=== PATIENT | female | born 1960 | race Caucasian/White ===

== ENCOUNTER → 2016-12-08 | Outpatient (CLI) | payer OTHER ==
--- NOTE | 2016-12-08 16:02 | US ---
EXAMINATION TYPE: US carotid duplex BILAT DATE OF EXAM: 12/08/2016 3:25 PM COMPARISON: None. CLINICAL HISTORY: 56-year-old female loss of vision both eyes. TECHNIQUE: Carotid duplex Doppler ultrasound examination. Indirect Doppler criteria was utilized. FINDINGS: Smith scale images show slight intimal thickening at each bifurcation. RIGHT: Peak Systolic Velocity (PSV) cm/sec ----- Right CCA: 73.2 ----- Right ICA: 82.0 ----- Right ECA: 62.5 ICA/CCA ratio: 1.1 RIGHT: End Diastole cm/sec ----- Right CCA: 30.3 ----- Right ICA: 38.0 ----- Right ECA: 18.8 LEFT: Peak Systolic Velocity (PSV) cm/sec ----- Left CCA: 61.6 ----- Left ICA: 72.1 ----- Left ECA: 47.4 ICA/CCA ratio: 1.2 LEFT: End Diastole cm/sec ----- Left CCA: 25.0 ----- Left ICA: 27.0 ----- Left ECA: 11.8 VERTEBRALS (direction of flow): Right Vertebral: Antegrade Left Vertebral: Antegrade IMPRESSION: No hemodynamically significant stenosis appreciated within either internal carotid artery. Criteria for Assigning % of Stenosis / Diameter reduction (Estimation based on the indirect measurements of the internal carotid artery velocities (ICA PSV). 1. Normal (no stenosis)=ICA PSV < 125 cm/s: ratio < 2.0: ICA EDV<40 cm/s. 2. Less than 50% stenosis=ICA PSV < 125 cm/s: ratio < 2.0: ICA EDV<40 cm/s. 3. 50 to 69% stenosis=ICA PSV of 125 to 230 cm/s: ration 2.0 ? 4.0: ICA EDV 40-100 cm/s. 4. Greater than 70% stenosis to near occlusion= ICA PSV > 230 cm/s: ratio > 4.0: ICA EDV > 100 cm/s. 5. Near occlusion= ICA PSV velocities may be low or undetectable: variable ratio and ICA EDV. 6. Total occlusion=unable to detect flow.
== END | disposition home or self-care (01) ==
LOC: RADUSWWP 14:54
PROVIDERS: ATTEND Family Medicine
DX: G45.3 Amaurosis fugax (principal)
CPT/HCPCS: 93880

== ENCOUNTER → 2016-12-12 | Outpatient (CLI) | payer OTHER ==
--- NOTE | 2016-12-12 14:04 | MR ---
EXAMINATION TYPE: MR brain wo con DATE OF EXAM: 12/12/2016 1:17 PM COMPARISON: NONE HISTORY: amaurosis fugax CONTRAST: None TECHNIQUE: Multiplanar, multiecho imaging on a 3.0 Tiarra magnet is performed through the brain. Stud y is performed within 24 hours of arrival to the hospital. The craniovertebral junction is normal. The pituitary is normal. Diffusion-weighted imaging is performed. No abnormal hyperintensity is present to suggest an acute i ntracranial infarct or acute ischemic change. There are scattered punctate areas of hyperintensity on T2 and Inversion Recovery weighted sequences which are non-specific but can be related to microvascular ischemic changes. These appear to number a pproximately 13 on each side within centrum semiovale and subcortical white matter. Differential diag nosis could include multiple sclerosis in the proper clinical setting. The graft largest on the left measures 0.4 x 0.7 cm in the subcortical white matter of the watershed region. Series 501 image 19. L argest on the right is in the subcortical white matter of the posterior parietal lobe 0.5 x 0.5 cm. S eries 501 image 20 Ventricles and sulci are slightly prominent for the patient age. IMPRESSIONS: 1. Multiple bilateral subcortical and deep white matter changes which are nonspecific. Microvascular ischemic change and multiple sclerosis could be considered among other etiologies.
== END | disposition home or self-care (01) ==
LOC: RADMRIMAIN 12:18
PROVIDERS: ATTEND Family Medicine
DX: R90.82 White matter disease, unspecified (principal); G45.3 Amaurosis fugax
CPT/HCPCS: 70551

== ENCOUNTER → 2017-01-03 | Day surgery (SDC) | payer OTHER ==
[~2017-01-03] MED LIST: LACTATED RINGERS 1,000 ML IV SCH; LACTATED RINGERS 500 ML IV ONE; LACTATED RINGERS 500 ML IV SCH; MIDAZOLAM 2 MG/2 ML VIAL IV ONE; SODIUM CHLORIDE 0.9% 250 ML in EMPTY BAG 1 BAG IV PRN; SODIUM CHLORIDE 0.9% 500 ML in EMPTY BAG 1 BAG IV PRN; fentaNYL (PF) 50 MCG/ML 2 ML AMP IV ONE
[2017-01-03] MEDS: LACTATED RINGERS 1,000 ML IV SCH ×2 (12:01→12:33)
--- NOTE | 2017-01-03 12:12 | P.PCN ---
Date of Procedure: 01/03/17 Procedure(s) Performed: Preoperative diagnosis: Multiple sclerosis Post operative diagnoses: Multiple sclerosis Anesthesia local infiltration with lidocaine 1% 2 mL. and Versed 2 mg and fentanyl 50 g Condition: stable Complication: none. Description of the procedure procedure risk and benefits discussed with the patient and family, consent signed. Patient and the procedure area placed in lateral position back prepped with chlorhexidine 3 times been local infiltration of the skin and subcutaneous tissue with lidocaine 1% 2 mL for skin and subcu interstitial frustrations at L4 5 levels then 22-gauge Quincke- type needle advanced slowly at L4- 5 interlaminar space there was positive cerebrospinal fluid which was clear, no heme, no paresthesia ,total of 8 ML of clear cerebrospinal fluid collected in 4 different tubes 1-5 -2 mL in each, then the needle removed and a Band-Aid applied and patient tolerated the procedure well without any complications.
[2017-01-03 12:15] VITALS: RESP 18
[2017-01-03 13:19] VITALS: BP 116/68; PULSE 58
[2017-01-03 13:20] LABS: Appearance,CSF Clear
[2017-01-03 13:28] LABS: Glucose,CSF 59 mg/dL (40-70)
[2017-01-03 21:20] LABS: ANA w/Reflex to Titer NEGATIVE (NEGATIVE)
[2017-01-04 02:54] LABS: Lyme Antibodies Total(IgG/IgM) 0.07 (<0.90)
[2017-01-04 13:57] LABS: Immunoglobulin G 968 mg/dL (700 - 1600)
[2017-01-06 10:05] LABS: Lyme Specimen Source Not Provided
== END ==
LOC: PROCWHC3 11:12
PROVIDERS: ATTEND Specialist
DX: G35 Multiple sclerosis (principal)
CPT/HCPCS: 86235 ×3; 87476; 86592; 86618; 84439; 88108; 84157; 82945; 82040; 82042; 82784; 83916; 82164 ×2; 83873; 84443; 84450; 85730; 86431; 85613; 89050; 86780; 86038; 86225; 96360; 84460; 36415; 62270; J2250; J3010; 96361

== ENCOUNTER 2017-01-06 11:41 | Day surgery (SDC) | payer OTHER ==
--- NOTE | 2017-01-06 13:47 | P.PCN ---
Date of Procedure: 01/06/17 Procedure(s) Performed: Procedure= lumbar epidural blood patch. Preoperative diagnosis= postdural puncture headache. Postoperative diagnoses= post dural puncture headache. Indication for the procedure= patient developed sever headache after the diagnostic lumbar puncture /spinal headache persists in spite of conservative treatment, there is no focal neurological deficit, no fever, no neck stiffness, headache worse with sitting and standing position, and improved with lying supine, for this reason patient is a good candidate for epidural blood patch. anesthesia= IV sedation with Versed 2 mg and fentanyl 50 g ,and local infiltration with lidocaine 1% 3 mL. Complications= none. Description of the procedure= patient identified risks and benefits of the procedure explained to the patient and patient agreed with proceeding, vital signs monitored during the procedure and IV sedation given to decrease anxiety, Back lumbar area prepped with chlorhexidine 3 times, then drape applied the local infiltration of the skin and subcutaneous tissue with lidocaine 1% 3 mL at L5-S1 interlaminar space then 20-gauge Tuohy needle advanced slowly at L5-S1 interlaminar space, There was positive loss of resistance to normal saline, no heme no paresthesia no cerebrospinal fluid, then after that he ML of the blood taken from the patient under strict sterile technique, and after the left antecubital area prepped with a chlorhexidine 3 times using 20-gauge Angiocath, and under sterile technique the 20 ML of the block taken from the patient injected in the epidural space after negative aspiration for heme or CSF and there was no paresthesia then the needle removed intact the skin cleaned and the , bandage applied and patient discharged home in stable condition after discharge criteria met, and patient will follow up with (neurology services )
[2017-01-06] MEDS ORDERED: fentaNYL (PF) 50 MCG/ML 2 ML AMP IV NR (15:00)
[2017-01-06] MEDS ORDERED: MIDAZOLAM 2 MG/2 ML VIAL IVP NR (15:00)
[2017-01-06] MEDS ORDERED: LACTATED RINGERS 1,000 ML IV ONE (15:00)
[2017-01-06 15:25] VITALS: RESP 16; TEMP 97.6
[2017-01-06 15:37] VITALS: BP 107/73; PULSE 81
== END 2017-01-06 12:40 | disposition home or self-care (01) ==
LOC: PROCWHC3 11:41 → EDSTATUS 11:45 → PROCWHC3 12:40
PROVIDERS: ATTEND Specialist
DX: G97.1 Other reaction to spinal and lumbar puncture (principal); Y84.4 Aspiration of fluid as the cause of abnormal reaction of the patient, or of later complication, without mention of misadventure at the time of the procedure; Y92.239 Unspecified place in hospital as the place of occurrence of the external cause
CPT/HCPCS: 96361; 96374; 62273; J2250; J3010

== ENCOUNTER → 2017-02-22 | Outpatient (CLI) | payer OTHER ==
[2017-02-16 13:21] VITALS: BMI 29.1
[2017-02-22 13:20] VITALS: BP 132/95; PULSE 63; RESP 16; TEMP 98.1
--- NOTE | 2017-02-22 13:42 | P.CON ---
Consult Note - . Consult date: 02/22/17 Assessment/Plan:: Dr. Ceasar Gold dictating outpatient consultation note on Patricia Carranza. She is interviewed, examined, and the chart is reviewed in full with her consent. 56-year-old female presents today for evaluation possible therapeutic intervention with regards to her chronic pain related complaints. She states she long-standing history of low back and lower extremity related discomfort dating back many many years. Does not remember any specific accident , injury, inciting event precipitated the onset of her complaints but she has noticed an acute rise in both the severity and frequency C of her symptoms over the past 4-6 months. She describes pain in her low back more severely predominantly on the left side with direct radiation into her left buttock and hip. Both the neuraxial component and the radicular component of her pain is worsened with increased amounts of activity or sudden rapid position changes. At many times during the day she can find no position of comfort in her ability to tolerate tolerate some of her daily activities has become markedly curtailed. Because of this increasing functional limitations what eventually prompted her to seek more aggressive therapeutic intervention. Diagnostic evaluation up to this point consisted both the plain film radiographs and advance x-ray imaging techniques such as MRI. The results of these radiographic studies including the results of the MRI are available on the [place] [facility] chart. Therapeutic intervention up to this point has been conservative in nature consisting of some oral analgesic preparations and some low-level physical therapy/exercises. Neither of these remedies have provided her with a significant reduction in her level of symptomatology, or a better ability to resume most of the activity she wishes to pursue. Not undergone any previous interventional pain injections, nor has she had any previous spine surgery it was at this point time and along a detailed discussion with regarding a variety of therapeutic options available to her. We agreed that a transforaminal epidural injection on the left side at the level NAVEEN 5 would be an appropriate and prudent first step in her treatment algorithm. This procedure was explained to her great toe, including a thorough expiration of all postures Occasions as well as potential for significant therapeutic benefit. She was given ample opportunity ask any questions with any concerns regarding this treatment plan and we scheduled her injection within the next couple weeks. He has she is quite desirous of not having any medical management performed on her in avoiding opiates at all cost I told her that I very much respect this opinion and we will try to get her into the procedure schedule she was possible thank you so much for this most interesting consultation
== END | disposition home or self-care (01) ==
LOC: PNWHC3 11:49
PROVIDERS: ATTEND Anesthesiology
DX: G89.29 Other chronic pain (principal); M54.5 Low back pain; M25.552 Pain in left hip; M53.3 Sacrococcygeal disorders, not elsewhere classified
CPT/HCPCS: 99211

== ENCOUNTER 2017-03-27 08:34 | Day surgery (SDC) | payer OTHER ==
[2017-03-24 08:24] VITALS: BMI 29.1
[~2017-03-27 08:34] MED LIST changes: -LACTATED RINGERS 500 ML IV ONE; -LACTATED RINGERS 500 ML IV SCH; -MIDAZOLAM 2 MG/2 ML VIAL IV ONE; -SODIUM CHLORIDE 0.9% 250 ML in EMPTY BAG 1 BAG IV PRN; -SODIUM CHLORIDE 0.9% 500 ML in EMPTY BAG 1 BAG IV PRN; -fentaNYL (PF) 50 MCG/ML 2 ML AMP IV ONE
[2017-03-27 09:18] VITALS: RESP 16; TEMP 98.7
[2017-03-27] MEDS ORDERED: LIDOCAINE 1% 20 ML VIAL (10MG/ML) FOR IV START INTRADERMA ONE (09:18)
[2017-03-27] MEDS ORDERED: MIDAZOLAM 2 MG/2 ML VIAL ONE (09:42)
[2017-03-27] MEDS ORDERED: fentaNYL (PF) 50 MCG/ML 2 ML AMP ONE (09:42)
[2017-03-27] MEDS ORDERED: IOHEXOL 180 MG/ML 1 ML ML ONE (09:42)
[2017-03-27] MEDS ORDERED: TRIAMCINOLONE ACETONIDE 40 MG/ML 1 ML VIAL ONE (09:42)
[2017-03-27] MEDS ORDERED: IV FLUID CONTINUATION 1,000 ML IV ONE (10:15)
[2017-03-27] MEDS ORDERED: ONDANSETRON 4 MG/2 ML VIAL IVP ONE ×2 (10:20→11:14)
--- NOTE | 2017-03-27 10:41 | FL ---
EXAMINATION TYPE: FL guided pain mgmt statistic DATE OF EXAM: 03/27/2017 10:25 AM CLINICAL HISTORY: Low back pain. TECHNIQUE: Fluoroscopy. COMPARISON: None. FINDINGS: Fluoroscopic guidance was provided during pain relief procedure performed by Dr. Rojo . A total of 22 seconds of fluoroscopic time was utilized during the procedure and 1 spot images are acquired. Single image acquired shows needle localization off midline at inferior L4 vertebral body level. IMPRESSION: As Above.
--- NOTE | 2017-03-27 11:12 | P.PCN ---
Date of Procedure: 03/27/17 Procedure(s) Performed: PREOPERATIVE DIAGNOSIS: Lumbar radiculopathy in left L4-5 distribution POSTOPERATIVE DIAGNOSIS: Same as preoperative diagnosis PROCEDURE 1. Transforaminal epidural steroid injection under fluoroscopic guidance at left L4-5 level. 2. Lumbar epidurogram : ANESTHESIA: Local with 1% lidocaine 3 ml ,; IV sedation with Versed 2 and fentanyle 100 mcg EBL: Minimal PROCEDURE INDICATION: The patient with low back pain and radiculopathy symptoms unresponsive to conservative treatment. PROCEDURE DESCRIPTION / TECHNIQUE: The patient was seen and identified in the preoperative area. Risks, benefits , complications, and alternatives were discussed with the patient. The patient agreed to proceed with the procedure and signed the consent. IV was started, and vital signs were stable. Patient was taken to the OR and time out was completed. The patient was placed in the prone position on procedure table and a pillow was placed under the abdomen to reduce lumbar lordosis. The lumbosacral area was prepped and draped in the usual sterile fashion. Critical pause was taken. Vital signs were closely monitored during the procedure. Conscious sedation was used during the procedure to decrease patients anxiety. Using oblique fluoroscopy, the chin of the ``Darwin dog at Left L4-5 level was identified, and the skin and deeper tissues just below was localized with 1 % lidocaine. Subsequently, a 22-gauge 5-inch spinal needle was advanced under a tunneled view fluoroscopic guidance just underneath the chin of the ``Darwin dog at the Left L4-5 Under lateral fluoroscopy, the needle was then advanced to the posterior border of the Left L4-5 interforaminal space. After negative aspiration of CSF and blood and with no paresthesias, 2 mL ofomnipaque-240 contrast dye was injected excellent epidurogram and outlining of the left L4-5 foramina, Subsequently, 3 mL of block solution containing 40 mg of Kenalog and 2 mL of Lidocaine 1% was injected. Needle was removed , At the end of the procedure, skin was cleansed, and bandages were applied. COMPLICATIONS: None COMMENTS: DISPOSITION / PLANS: The patient was placed in a supine position and transferred to the recovery area in a stable condition for observation. There was no evidence of lower extremity motor or sensory deficit after the procedure. Patient was discharged from the recovery room after meeting discharge criteria. Home discharge instructions were given to the patient by the staff. The patient was reexamined prior to discharge.
[2017-03-27 11:55] VITALS: BP 127/87; PULSE 66
== END 2017-03-27 11:58 | disposition home or self-care (01) ==
LOC: ORPAIN 08:34
PROVIDERS: ATTEND Specialist
DX: M54.16 Radiculopathy, lumbar region (principal); Z88.0 Allergy status to penicillin
CPT/HCPCS: 64483; 99152; J2250; J3301; Q9965; J2405; J3010

== ENCOUNTER → 2017-08-21 | Outpatient (CLI) | payer OTHER | END | disposition home or self-care (01) | LOC: LABWHC1 10:26 | PROVIDERS: ATTEND Psychiatry & Neurology Neurology | DX: M54.16 Radiculopathy, lumbar region (principal) | CPT/HCPCS: 36415; 82306 ==

== ENCOUNTER → 2017-10-25 | Outpatient (CLI) | payer OTHER ==
[2017-10-25 10:06] LABS: INR 0.9 (<1.2); Partial Thromboplastin Time 24.1 sec (22.0-30.0); Prothrombin Time 9.4 sec (9.0-12.0)
[2017-10-25 10:20] LABS: Basophils # (A) 0.1 k/uL (0-0.2); Basophils % (A) 1 %; CH 28.3; CHCM 31.9; Eosinophils # (A) 0.3 k/uL (0-0.7); Eosinophils % (A) 4 %; HCT 40.1 % (34.0-46.0); HDW 2.26; HGB 13.3 gm/dL (11.4-16.0); Luc # (Auto) 0.12; Luc % (Auto) 2; Lymphocytes # (A) 2.2 k/uL (1.0-4.8); Lymphocytes % (A) 30 %; MCH 29.6 pg (25.0-35.0); MCHC 33.2 g/dL (31.0-37.0); MCV 89.1 fL (80.0-100.0); Mean Platelet Volume 7.7; Monocytes # (A) 0.5 k/uL (0-1.0); Monocytes % (A) 7 %; Neutrophils # (A) 4.2 k/uL (1.3-7.7); Neutrophils % (A) 57 %; RDW 14.2 % (11.5-15.5); WBC 7.5 k/uL (3.8-10.6); WBC (Perox) 7.41
[2017-10-25 10:21] LABS: Anion Gap 8 mmol/L; Blood Urea Nitrogen 20 mg/dL (7-17); Carbon Dioxide 27 mmol/L (22-30); Chloride 106 mmol/L (98-107); Glucose 91 mg/dL (74-99); Non-African American GFR(MDRD) >60 (>60 ml/min/1.73 sqM); Potassium 4.3 mmol/L (3.5-5.1); Sodium 141 mmol/L (137-145)
[2017-10-25 11:02] LABS: Appearance,Urine Clear (Clear); Bacteria,Urine Rare /hpf; Bilirubin,Urine Negative (Negative); Glucose,Urine (UA) Negative (Negative); Ketones,Urine Negative (Negative); Leukocyte Esterase,Urine Trace (Negative); Nitrite,Urine Negative (Negative); Particle Count 957; Protein,Urine Negative (Negative); RBC,Urine <1 /hpf (0-5); Specific Gravity,Urine 1.013 (1.001-1.035); Squamous Epithelial Cell,Urine 5 /hpf (0-4); UA Billing (MACRO vs. MICRO) MICRO; Urobilinogen,Urine <2.0 mg/dL (<2.0); WBC,Urine 1 /hpf (0-5)
== END | disposition home or self-care (01) ==
LOC: LABWHC1 09:17
PROVIDERS: ATTEND Family Medicine
DX: Z01.810 Encounter for preprocedural cardiovascular examination (principal); Z01.812 Encounter for preprocedural laboratory examination; M25.561 Pain in right knee
CPT/HCPCS: 36415; 80048; 81001; 85025; 85610; 85730; 93005

== ENCOUNTER → 2018-01-15 | Outpatient (CLI) | payer BC ==
--- NOTE | 2018-01-15 11:33 | XR ---
EXAMINATION TYPE: XR lumbosacral spine min 4V DATE OF EXAM: 01/15/2018 CLINICAL HISTORY: Lumbar region spondylolisthesis per order. Low back pain going down left leg since knee replacement surgery November 06 per patient. TECHNIQUE: Frontal, lateral, and oblique images of the lumbar spine are obtained. COMPARISON: Lumbar spine x-ray October 24, 2016 FINDINGS: There are 5 lumbar type vertebral bodies redemonstrated. The lumbar spine redemonstrates stable slight levoconvex scoliotic curvature centered L3 level without evidence of acute fracture or dislocation. Vertebral body heights remain within normal limits. There is mild disc space narrowing with mild to moderate anterior spurring L2-L3 level. There is mild to moderate disc space narrowing L 4-L5 level. Facet arthropathy lower lumbar levels is again seen. There is additional mild multilevel anterior and lateral spurring. The oblique images appear within normal limits. Mild vascular consulta tion overlying soft tissue is redemonstrated. IMPRESSION: No acute fracture or dislocation is seen in the lumbar spine. Multilevel degenerative ch anges redemonstrated as detailed above, no significant change from prior study.
== END | disposition home or self-care (01) ==
LOC: RADXRMAIN 09:44
PROVIDERS: ATTEND Family Medicine
DX: M48.061 Spinal stenosis, lumbar region without neurogenic claudication (principal); M47.816 Spondylosis without myelopathy or radiculopathy, lumbar region; M46.86 Other specified inflammatory spondylopathies, lumbar region; M41.86 Other forms of scoliosis, lumbar region
CPT/HCPCS: 72110

== ENCOUNTER → 2018-01-16 | Outpatient (CLI) | payer BC ==
[2018-01-16 13:10] VITALS: BP 125/87; PULSE 99; RESP 18
--- NOTE | 2018-01-16 18:21 | P.PN ---
Subjective Progress Note Date: 01/16/18 This is 57 years old female with a chronic history of severe low back pain with radiation to the left lower extremity, she was diagnosed with lumbar radiculopathy, Last year I have done left side transforaminal epidural steroid injection at L4 5 level, she gets excellent pain relief, and recently she started having severe low back pain with radiation to left lower extremity associated with numbness and tingling sensation, she denies any fever or night sweats ,she denies any motor or sensory deficit ,she denies any change in the bowel movement or urination Objective - Vital Signs Vital signs: Vital Signs Temp Pulse 99 01/16/18 13:07 Resp 18 01/16/18 13:07 BP 125/87 01/16/18 13:07 Pulse Ox Intake & Output 01/15/18 01/16/18 01/16/18 18:59 06:59 18:59 Weight 79.379 kg - Exam Physical Examinations : 1-Constitutiona : Cooperative , not in acute distress . 2-HEENT : nech ; supple , no Lymphadenopathy , normal thyroid size . eyes : no ptosis , no icterus, no photophobia . ENT : normal of hearing , normal oropharynx , no Thrush . 3- Respiratory : Chest clear to auscultations Bilaterally , no wheezing , no Rhonchi . 4- Cardiovascular : regular rate and rhythem , S1 , S2 , no S3 , no S4. 5- Gastrointestinal : abdomen soft no tenderness , bowel sounds positive all four quadrents , no organomegally . 6- Genitourinary : Defferred . 7- neurologic : Cranial nerve II to XII intact , no focal neurological deffecit . 8-psychatric : alert , oriented X 3 , appropriate affect , intact judgment and insight . 9-Lymphatic : no Lymphadenopathy . 10- musculoskeltal : , Lumber spine = normal moter stegnth lower extremities ,thigh and legs .5/5 deep tendon reflexes : normal Knee Jerk , normal ankle Jerk . 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
== END | disposition home or self-care (01) ==
LOC: PNWHC3 12:38
PROVIDERS: ATTEND Specialist
DX: G89.29 Other chronic pain (principal); M54.16 Radiculopathy, lumbar region
CPT/HCPCS: 99211

== ENCOUNTER 2018-02-13 06:12 | Day surgery (SDC) | payer BC ==
[2018-02-08 16:18] VITALS: BMI 29.1
[2018-02-13 06:42] VITALS: TEMP 97.8
[2018-02-13] MEDS ORDERED: LIDOCAINE 1% 20 ML VIAL (10MG/ML) FOR IV START INTRADERMA ONE (06:51)
[2018-02-13] MEDS ORDERED: ONDANSETRON 4 MG/2 ML VIAL ONE (07:00)
[2018-02-13] MEDS ORDERED: ONDANSETRON 4 MG/2 ML VIAL IVP ONE (07:03)
--- NOTE | 2018-02-13 07:25 | P.PCN ---
Date of Procedure: 02/13/18 Surgeon: Cristin Gar Description of Procedure: PREOPERATIVE DIAGNOSIS: Lumbar radiculopathy in left L4-5 distribution POSTOPERATIVE DIAGNOSIS: Same as preoperative diagnosis PROCEDURE 1. Transforaminal epidural steroid injection under fluoroscopic guidance at left L4-5 level. 2. Lumbar epidurogram : ANESTHESIA: Local with 1% lidocaine 3 ml ,; IV sedation with Versed 2 and fentanyle 100 mcg EBL: Minimal PROCEDURE INDICATION: The patient with low back pain and radiculopathy symptoms unresponsive to conservative treatment. PROCEDURE DESCRIPTION / TECHNIQUE: The patient was seen and identified in the preoperative area. Risks, benefits , complications, and alternatives were discussed with the patient. The patient agreed to proceed with the procedure and signed the consent. IV was started, and vital signs were stable. Patient was taken to the OR and time out was completed. The patient was placed in the prone position on procedure table and a pillow was placed under the abdomen to reduce lumbar lordosis. The lumbosacral area was prepped and draped in the usual sterile fashion. Critical pause was taken. Vital signs were closely monitored during the procedure. Conscious sedation was used during the procedure to decrease patients anxiety. Using oblique fluoroscopy, the chin of the ``Darwin dog at Left L4-5 level was identified, and the skin and deeper tissues just below was localized with 1 % lidocaine. Subsequently, a 22-gauge 5-inch spinal needle was advanced under a tunneled view fluoroscopic guidance just under the pedicle of the L4 vertebra at the 6 o'clock position underneath the chin of the ``Darwin dog at the Left L4-5 Under lateral fluoroscopy, the needle was then advanced to one third of the Left L4-5 interforaminal space. After negative aspiration of CSF and blood and with no paresthesias, 1 mL contrast dye was injected excellent epidurogram and outlining of the left L4 nerve root, Subsequently, 2 mL of block solution containing 40 mg of Kenalog and 1 mL of Marcaine 0.25% was injected. Needle was removed , At the end of the procedure, skin was cleansed, and bandages were applied. COMPLICATIONS: None COMMENTS: DISPOSITION / PLANS: The patient was placed in a supine position and transferred to the recovery area in a stable condition for observation. There was no evidence of lower extremity motor or sensory deficit after the procedure. Patient was discharged from the recovery room after meeting discharge criteria. Home discharge instructions were given to the patient by the staff. The patient was reexamined prior to discharge.
[2018-02-13 07:33] VITALS: RESP 18
[2018-02-13] MEDS ORDERED: IV FLUID CONTINUATION 600 ML IV ONE (07:33)
[2018-02-13 07:50] VITALS: BP 115/78; PULSE 70
--- NOTE | 2018-02-13 08:14 | FL ---
EXAMINATION TYPE: FL guided pain mgmt statistic DATE OF EXAM: 02/13/2018 CLINICAL HISTORY: Low back pain. TECHNIQUE: Fluoroscopy. COMPARISON: None. FINDINGS: Fluoroscopic guidance was provided during pain relief procedure performed by Dr. Gar . A total of 23 seconds of fluoroscopic time was utilized during the procedure and 3 spot images are acquired. Images acquired shows needle localization at several levels in the lower lumbar spine. IMPRESSION: As Above.
== END 2018-02-13 08:00 | disposition home or self-care (01) ==
LOC: ORPAIN 06:12
PROVIDERS: ATTEND Anesthesiology
DX: M54.16 Radiculopathy, lumbar region (principal); I10 Essential (primary) hypertension; Z88.0 Allergy status to penicillin
CPT/HCPCS: 64483; J3301; Q9965; J2405; 99152

== ENCOUNTER 2018-02-27 07:25 | Day surgery (SDC) | payer BC ==
[2018-02-22 09:33] VITALS: BMI 29.1
[2018-02-27] MEDS ORDERED: LIDOCAINE 1% 20 ML VIAL (10MG/ML) FOR IV START INTRADERMA ONE (08:06)
[2018-02-27] MEDS ORDERED: LACTATED RINGERS 1,000 ML IV ONE (08:06)
[2018-02-27 08:13] VITALS: RESP 18; TEMP 98
[2018-02-27] MEDS ORDERED: ONDANSETRON 4 MG/2 ML VIAL IVP ONE (08:29)
[2018-02-27] MEDS ORDERED: IV FLUID CONTINUATION 1,000 ML IV ONE (09:39)
[2018-02-27 10:04] VITALS: BP 136/84; PULSE 64
--- NOTE | 2018-02-27 10:13 | FL ---
Fluoroscopy INDICATION: Pain FINDINGS: Fluoroscopy time: 26 seconds. Images obtained: 1. IMPRESSIONS: 1. Documentation of fluoroscopy.
--- NOTE | 2018-02-27 17:35 | P.PCN ---
Date of Procedure: 02/27/18 Procedure(s) Performed: PREOPERATIVE DIAGNOSIS: Lumbar radiculopathy in left L4-5 distribution POSTOPERATIVE DIAGNOSIS: Lumbar radiculopathy in left L4 5 distribution PROCEDURE 1. Transforaminal epidural steroid injection under fluoroscopic guidance at the left L4 5 level. 2. Lumbar epidurogram : ANESTHESIA: Local with 1% lidocaine 3 ml , moderate sedation with intravenous Versed 2 mg and fentanyle 100 micrograms. EBL: Minimal PROCEDURE INDICATION: The patient with low back pain and radiculopathy symptoms unresponsive to conservative treatment. PROCEDURE DESCRIPTION / TECHNIQUE: The patient was seen and identified in the preoperative area. Risks, benefits , complications, and alternatives were discussed with the patient. The patient agreed to proceed with the procedure and signed the consent. IV was started, and vital signs were stable. Patient was taken to the OR and time out was completed. The patient was placed in the prone position on procedure table and a pillow was placed under the abdomen to reduce lumbar lordosis. The lumbosacral area was prepped and draped in the usual sterile fashion. Critical pause was taken. Vital signs were closely monitored during the procedure. Conscious sedation was used during the procedure to decrease patients anxiety. Using oblique fluoroscopy, the chin of the ``Darwin dog at left L4 5 level was identified, and the skin and deeper tissues just below was localized with 1 % lidocaine. Subsequently, a 22-gauge 3.5-inch spinal needle was advanced under a tunneled view fluoroscopic guidance just underneath the chin of the ``Darwin dog at the left L4 5. Under lateral fluoroscopy, the needle was then advanced to the posterior border of the left L4 5 interforaminal space. After negative aspiration of CSF and blood and with no paresthesias, 1 mL Isovue 200 contrast dye was injected excellent epidurogram and outlining of the Left nerve root Subsequently, 3 mL of block solution containing 20 mg Dexamethason and 2 mL of Lidocaine 1% was injected. Needle was removed . COMPLICATIONS: None COMMENTS: DISPOSITION / PLANS: The patient was placed in a supine position and transferred to the recovery area in a stable condition for observation. There was no evidence of lower extremity motor or sensory deficit after the procedure. Patient was discharged from the recovery room after meeting discharge criteria. Home discharge instructions were given to the patient by the staff. The patient was reexamined prior to discharge.
== END 2018-02-27 10:23 | disposition home or self-care (01) ==
LOC: ORPAIN 07:25
PROVIDERS: ATTEND Specialist
DX: M54.16 Radiculopathy, lumbar region (principal); Z88.0 Allergy status to penicillin; Z86.73 Personal history of transient ischemic attack (TIA), and cerebral infarction without residual deficits
CPT/HCPCS: 64483; J2250; J1030; J3301; J2405; J3010; Q9966; 99152

== ENCOUNTER → 2018-03-12 | Outpatient (CLI) | payer BC ==
[2018-03-12 11:13] LABS: Appearance,Urine Clear (Clear); Bilirubin,Urine Negative (Negative); Blood,Urine Negative (Negative); Color,Urine Yellow; Glucose,Urine (UA) Negative (Negative); Ketones,Urine Negative (Negative); Leukocyte Esterase,Urine Trace (Negative); Mucus,Urine Rare /hpf; Nitrite,Urine Negative (Negative); Protein,Urine Trace (Negative); RBC,Urine 2 /hpf (0-5); Specific Gravity,Urine 1.022 (1.001-1.035); Squamous Epithelial Cell,Urine 2 /hpf (0-4); Urobilinogen,Urine <2.0 mg/dL (<2.0); WBC,Urine 1 /hpf (0-5)
[2018-03-12 11:16] LABS: INR 0.9 (<1.2); Partial Thromboplastin Time 22.7 sec (22.0-30.0); Prothrombin Time 9.3 sec (9.0-12.0)
[2018-03-12 11:18] LABS: Basophils # (A) 0.1 k/uL (0-0.2); Basophils % (A) 1 %; Eosinophils # (A) 0.2 k/uL (0-0.7); Eosinophils % (A) 2 %; HCT 44.6 % (34.0-46.0); HGB 14.3 gm/dL (11.4-16.0); Lymphocytes # (A) 2.7 k/uL (1.0-4.8); Lymphocytes % (A) 29 %; MCH 27.1 pg (25.0-35.0); MCHC 32.1 g/dL (31.0-37.0); MCV 84.6 fL (80.0-100.0); Mean Platelet Volume 7.1; Monocytes # (A) 0.4 k/uL (0-1.0); Monocytes % (A) 5 %; Neutrophils # (A) 5.7 k/uL (1.3-7.7); Neutrophils % (A) 62 %; Platelet Count 312 k/uL (150-450); RBC 5.28 m/uL (3.80-5.40); RDW 14.4 % (11.5-15.5); WBC 9.3 k/uL (3.8-10.6)
[2018-03-12 11:34] LABS: Anion Gap 11 mmol/L; Blood Urea Nitrogen 15 mg/dL (7-17); Calcium 10.4 mg/dL (8.4-10.2); Carbon Dioxide 30 mmol/L (22-30); Chloride 104 mmol/L (98-107); Glucose 91 mg/dL (74-99); Potassium 4.5 mmol/L (3.5-5.1); Sodium 145 mmol/L (137-145)
== END | disposition home or self-care (01) ==
LOC: LABWHC1 10:33
PROVIDERS: ATTEND Family Medicine
DX: Z01.812 Encounter for preprocedural laboratory examination (principal); M25.561 Pain in right knee
CPT/HCPCS: 36415; 80048; 81001; 85025; 85610; 85730

== ENCOUNTER → 2018-03-29 | Outpatient (CLI) | payer BC ==
[2018-03-29 17:02] LABS: Anion Gap 6 mmol/L; Blood Urea Nitrogen 17 mg/dL (7-17); Calcium 9.2 mg/dL (8.4-10.2); Carbon Dioxide 32 mmol/L (22-30); Chloride 103 mmol/L (98-107); Glucose 92 mg/dL (74-99); Potassium 4.7 mmol/L (3.5-5.1); Sodium 141 mmol/L (137-145)
== END ==
LOC: LABWHC1 16:35
PROVIDERS: ATTEND Family Medicine
DX: E87.6 Hypokalemia (principal)
CPT/HCPCS: 36415; 80048

== ENCOUNTER 2018-06-27 16:54 | Emergency (ER) | payer BC, OTHER ==
[2018-06-27] MEDS ORDERED: SODIUM CHLORIDE 0.9% 1,000 ML IV STA (17:24)
[2018-06-27 17:59] LABS: Basophils % (A) 1 %; Eosinophils # (A) 0.2 k/uL (0-0.7); Eosinophils % (A) 2 %; HCT 45.3 % (34.0-46.0); HGB 15.5 gm/dL (11.4-16.0); Lymphocytes # (A) 2.8 k/uL (1.0-4.8); Lymphocytes % (A) 32 %; MCH 28.1 pg (25.0-35.0); MCHC 34.2 g/dL (31.0-37.0); MCV 82.1 fL (80.0-100.0); Mean Platelet Volume 7.6; Monocytes # (A) 0.5 k/uL (0-1.0); Monocytes % (A) 6 %; Neutrophils # (A) 5.1 k/uL (1.3-7.7); Neutrophils % (A) 58 %; Platelet Count 335 k/uL (150-450); RBC 5.52 m/uL (3.80-5.40); RDW 13.9 % (11.5-15.5); WBC 8.8 k/uL (3.8-10.6)
[2018-06-27 18:08] LABS: Albumin 4.8 g/dL (3.5-5.0); Calcium 10.4 mg/dL (8.4-10.2); Phosphorus 3.2 mg/dL (2.5-4.5); Total Bilirubin 1.2 mg/dL (0.2-1.3); Total Protein 8.2 g/dL (6.3-8.2)
--- NOTE | 2018-06-27 18:14 | ED ---
General Adult HPI - General Chief complaint: Neuro Symptoms/Deficit Stated complaint: Numbness in face and hands Time Seen by Provider: 06/27/18 17:04 Source: patient, RN notes reviewed, old records reviewed Mode of arrival: wheelchair Limitations: no limitations - History of Present Illness Initial comments: This is a 57-year-old female the ER for evaluation. Patient does say for evaluation of multiple nonspecific complaints mainly arriving around numbness and tingling in fingers arms and legs. Patient has no specific neurological deficit no difficulties and speech or any other complaints. Patient has medical history of TIA. Patient states she has had similar symptoms before for years was unsure of cause multiple ER visits for same. Patient does admit to significant increase in stress was crying upon questioning regarding recent struggles of her family, . - Related Data Home Medications Medication Instructions Recorded Confirmed Hydrochlorothiazide 25 mg PO DAILY 11/14/16 06/27/18 Metoprolol Succinate (ER) [Toprol 100 mg PO DAILY 11/14/16 06/27/18 Xl] FLUoxetine HCL [PROzac] 20 mg PO DAILY 06/27/18 06/27/18 Topiramate [Topamax] 50 mg PO DAILY 06/27/18 06/27/18 Allergies Allergy/AdvReac Type Severity Reaction Status Date / Time amoxicillin Allergy Rash/Hives Verified 06/27/18 17:08 Review of Systems ROS Statement: Those systems with pertinent positive or pertinent negative responses have been documented in the HPI. ROS Other: All systems not noted in ROS Statement are negative. Past Medical History Past Medical History: CVA/TIA, Hyperlipidemia, Hypertension, Musculoskeletal Disorder Additional Past Medical History / Comment(s): BACK PAIN, MIGRAINES, HEAD INJURY History of Any Multi-Drug Resistant Organisms: None Reported Past Surgical History: Appendectomy, Section, Orthopedic Surgery Additional Past Surgical History / Comment(s): ACL replacement; R Knee arthroscopy, pain clinic procedure. total knee replacement left knee 11-06-17 Past Anesthesia/Blood Transfusion Reactions: Motion Sickness, Postoperative Nausea & Vomiting (PONV) Past Psychological History: Depression Smoking Status: Never smoker Past Alcohol Use History: None Reported Past Drug Use History: Marijuana - Past Family History Mother Family Medical History: No Reported History Father Family Medical History: Pulmonary Embolus General Exam - General Exam Comments Initial Comments: NIH of 0 Limitations: no limitations General appearance: alert, in no apparent distress Head exam: Present: atraumatic, normocephalic, normal inspection Eye exam: Present: normal appearance, PERRL, EOMI. Absent: scleral icterus, conjunctival injection, periorbital swelling ENT exam: Present: normal exam, mucous membranes moist Neck exam: Present: normal inspection. Absent: tenderness, meningismus, lymphadenopathy Respiratory exam: Present: normal lung sounds bilaterally. Absent: respiratory distress, wheezes, rales, rhonchi, stridor Cardiovascular Exam: Present: regular rate, normal rhythm, normal heart sounds. Absent: systolic murmur, diastolic murmur, rubs, gallop, clicks GI/Abdominal exam: Present: soft, normal bowel sounds. Absent: distended, tenderness, guarding, rebound, rigid Extremities exam: Present: normal inspection, full ROM, normal capillary refill. Absent: tenderness, pedal edema, joint swelling, calf tenderness Back exam: Present: normal inspection Neurological exam: Present: alert, oriented X3, CN II-XII intact Psychiatric exam: Present: normal affect, normal mood Skin exam: Present: warm, dry, intact, normal color. Absent: rash Course Vital Signs 06/27/18 16:56 Temperature 98.4 F Pulse Rate 68 Respiratory 20 Rate Blood Pressure 150/91 O2 Sat by Pulse 96 Oximetry - Reevaluation(s) Reevaluation #1: 06/27/18 18:43 Patient remains without focal neurological deficit Reevaluation #2: 06/27/18 18:43 Patient is not homicidal or suicidal EKG Findings - EKG Comments: EKG Findings:: EKG shows sinus bradycardia rate 51, IN 140, QRS 90, QTc 418 Medical Decision Making - Medical Decision Making 57 female the ER for evaluation. Severe anxiety and stress secondary to grief reaction of (job loss, CT negative labwork normal. Patient can be discharged home - Lab Data Result diagrams: 06/27/18 17:45 06/27/18 17:45 Lab Results 06/27/18 06/27/18 06/27/18 Range/Units 17:45 17:45 17:45 WBC 8.8 (3.8-10.6) k/uL RBC 5.52 H (3.80-5.40) m/uL Hgb 15.5 (11.4-16.0) gm/dL Hct 45.3 (34.0-46.0) % MCV 82.1 (80.0-100.0) fL MCH 28.1 (25.0-35.0) pg MCHC 34.2 (31.0-37.0) g/dL RDW 13.9 (11.5-15.5) % Plt Count 335 (150-450) k/uL Neutrophils % 58 % Lymphocytes % 32 % Monocytes % 6 % Eosinophils % 2 % Basophils % 1 % Neutrophils # 5.1 (1.3-7.7) k/uL Lymphocytes # 2.8 (1.0-4.8) k/uL Monocytes # 0.5 (0-1.0) k/uL Eosinophils # 0.2 (0-0.7) k/uL Basophils # 0.0 (0-0.2) k/uL PT (9.0-12.0) sec INR (<1.2) APTT (22.0-30.0) sec Sodium 136 L (137-145) mmol/L Potassium 4.4 (3.5-5.1) mmol/L Chloride 99 (98-107) mmol/L Carbon Dioxide 27 (22-30) mmol/L Anion Gap 10 mmol/L BUN 16 (7-17) mg/dL Creatinine 0.94 (0.52-1.04) mg/dL Est GFR (CKD-EPI)AfAm 79 (>60 ml/min/1.73 sqM) Est GFR (CKD-EPI)NonAf 69 (>60 ml/min/1.73 sqM) Glucose 104 H (74-99) mg/dL Calcium 10.4 H (8.4-10.2) mg/dL Phosphorus 3.2 (2.5-4.5) mg/dL Magnesium 2.0 (1.6-2.3) mg/dL Total Bilirubin 1.2 (0.2-1.3) mg/dL AST 41 H (14-36) U/L ALT 22 (9-52) U/L Alkaline Phosphatase 108 (38-126) U/L Total Creatine Kinase 80 (30-135) U/L Total Protein 8.2 (6.3-8.2) g/dL Albumin 4.8 (3.5-5.0) g/dL TSH 2.800 (0.465-4.680) mIU/L 06/27/18 Range/Units 17:45 WBC (3.8-10.6) k/uL RBC (3.80-5.40) m/uL Hgb (11.4-16.0) gm/dL Hct (34.0-46.0) % MCV (80.0-100.0) fL MCH (25.0-35.0) pg MCHC (31.0-37.0) g/dL RDW (11.5-15.5) % Plt Count (150-450) k/uL Neutrophils % % Lymphocytes % % Monocytes % % Eosinophils % % Basophils % % Neutrophils # (1.3-7.7) k/uL Lymphocytes # (1.0-4.8) k/uL Monocytes # (0-1.0) k/uL Eosinophils # (0-0.7) k/uL Basophils # (0-0.2) k/uL PT 10.3 (9.0-12.0) sec INR 1.0 (<1.2) APTT 23.9 (22.0-30.0) sec Sodium (137-145) mmol/L Potassium (3.5-5.1) mmol/L Chloride (98-107) mmol/L Carbon Dioxide (22-30) mmol/L Anion Gap mmol/L BUN (7-17) mg/dL Creatinine (0.52-1.04) mg/dL Est GFR (CKD-EPI)AfAm (>60 ml/min/1.73 sqM) Est GFR (CKD-EPI)NonAf (>60 ml/min/1.73 sqM) Glucose (74-99) mg/dL Calcium (8.4-10.2) mg/dL Phosphorus (2.5-4.5) mg/dL Magnesium (1.6-2.3) mg/dL Total Bilirubin (0.2-1.3) mg/dL AST (14-36) U/L ALT (9-52) U/L Alkaline Phosphatase (38-126) U/L Total Creatine Kinase (30-135) U/L Total Protein (6.3-8.2) g/dL Albumin (3.5-5.0) g/dL TSH (0.465-4.680) mIU/L - Radiology Data Radiology results: report reviewed (CT brain is negative for acute disease), image reviewed Disposition Clinical Impression: Transient cerebral ischemia, Paresthesia, Grief reaction Disposition: HOME SELF-CARE Condition: Good Instructions: Paresthesia (ED) Is patient prescribed a controlled substance at d/c from ED?: No Referrals: Daquan Mondragon MD [Primary Care Provider] - 1-2 days
[2018-06-27 18:18] LABS: Potassium 4.4 mmol/L (3.5-5.1)
[2018-06-27 18:27] LABS: Partial Thromboplastin Time 23.9 sec (22.0-30.0); Prothrombin Time 10.3 sec (9.0-12.0)
[2018-06-27 18:32] LABS: Creatine Kinase 80 U/L (30-135)
[2018-06-27 18:44] LABS: Creatine Kinase MB 1.2 ng/mL (0.0-2.4); Troponin I <0.012 ng/mL (0.000-0.034)
--- NOTE | 2018-06-27 18:50 | CT ---
EXAMINATION: CT brain wo con DATE AND TIME: 06/27/2018 6:06 PM ORDERING PROVIDER: Carlos Dong DO CLINICAL INDICATION: Weakness, dizziness, and headache TECHNIQUE: Standard departmental protocol. DLP 1103 mGy-cm. COMPARISON: None. DESCRIPTION: The calvarium is intact. There is no intracranial hemorrhage. There is no mass or mass e ffect. There is no definite new attenuation defect. Remainder of the intra-axial and extra-axial comp artment examination is unremarkable. The paranasal sinuses, middle ear cavities, and mastoid sinus ai r cells are clear. The orbits are intact. IMPRESSION: NO ACUTE PROCESS.
[2018-06-27 19:43] VITALS: BP 128/63; PULSE 55; RESP 17; TEMP 97.6
== END 2018-06-27 19:47 | disposition home or self-care (01) ==
LOC: EC 16:54
DX: G45.9 Transient cerebral ischemic attack, unspecified (principal); F43.22 Adjustment disorder with anxiety; F32.9 Major depressive disorder, single episode, unspecified; I10 Essential (primary) hypertension; Z86.73 Personal history of transient ischemic attack (TIA), and cerebral infarction without residual deficits; Z98.890 Other specified postprocedural states; Z79.899 Other long term (current) drug therapy; Z88.0 Allergy status to penicillin
CPT/HCPCS: 36415; 70450; 80053; 82550; 82553; 83735; 84100; 84443; 84484; 85025; 85610; 85730; 93005; 96360; 99285

== ENCOUNTER 2019-06-02 14:27 | Emergency (ER) | payer OTHER ==
[2019-06-02 14:41] VITALS: BP 146/93; PULSE 68; RESP 18; TEMP 98.4
--- NOTE | 2019-06-02 15:38 | XR ---
EXAMINATION TYPE: XR shoulder complete RT DATE OF EXAM: 06/02/2019 COMPARISON: NONE HISTORY: Shoulder pain TECHNIQUE: 3 views FINDINGS: There is no fracture nor dislocation. Joint spaces are fairly normal. There is extensive ca lcification in the soft tissues at the greater tuberosity of the humerus. IMPRESSION: Extensive calcific tendinitis. No fracture seen.
[2019-06-02] MEDS ORDERED: ACET/COD 300 MG/30 MG STARTER PACK 6 TAB BTL PO STA (15:43)
--- NOTE | 2019-06-02 15:47 | ED ---
Extremity Problem HPI - General Chief complaint: Extremity Problem,Nontraumatic Stated complaint: Shoulder pain Time Seen by Provider: 06/02/19 14:42 Source: patient Mode of arrival: ambulatory Limitations: no limitations - History of Present Illness Initial comments: 58 yo female presented right shoulder pain 3 days. Patient states she is unable to range at the right shoulder secondary pain for the past 2 days. She states she does sleep on that side. Patient states she is able to point localized area of tenderness over the anterolateral shoulder. Patient denies any falls injuries. Patient denies a previous surgeries. Patient denies a fever or chills night sweats or erythema of the shoulder. Patient denies any recent upper respiratory infections. Patient denies any chest pain shortness of breath scapular pain right upper quadrant abdominal pain. Remaining review of systems negative upon arrival patient appears well there is no signs of acute distress. Patient is afebrile heart rate within normal limits. Patient does appear uncomfortable holding right shoulder and a protective posture. - Related Data Home Medications Medication Instructions Recorded Confirmed Hydrochlorothiazide 25 mg PO DAILY 11/14/16 06/27/18 Metoprolol Succinate (ER) [Toprol 100 mg PO DAILY 11/14/16 06/27/18 Xl] FLUoxetine HCL [PROzac] 20 mg PO DAILY 06/27/18 06/27/18 Topiramate [Topamax] 50 mg PO DAILY 06/27/18 06/27/18 Allergies Allergy/AdvReac Type Severity Reaction Status Date / Time amoxicillin Allergy Rash/Hives Verified 06/02/19 14:41 Review of Systems ROS Statement: Those systems with pertinent positive or pertinent negative responses have been documented in the HPI. ROS Other: All systems not noted in ROS Statement are negative. Past Medical History Past Medical History: CVA/TIA, Hyperlipidemia, Hypertension, Musculoskeletal Disorder Additional Past Medical History / Comment(s): BACK PAIN, MIGRAINES, HEAD INJURY History of Any Multi-Drug Resistant Organisms: None Reported Past Surgical History: Appendectomy, Section, Orthopedic Surgery Additional Past Surgical History / Comment(s): ACL replacement; R Knee arthroscopy, pain clinic procedure. total knee replacement left knee 11-06-17 Past Anesthesia/Blood Transfusion Reactions: Motion Sickness, Postoperative Nausea & Vomiting (PONV) Past Psychological History: Depression Smoking Status: Never smoker Past Alcohol Use History: None Reported Past Drug Use History: Marijuana - Past Family History Mother Family Medical History: No Reported History Father Family Medical History: Pulmonary Embolus General Exam - General Exam Comments Initial Comments: General: The patient is awake and alert, in no distress, and does not appear acutely ill. Eye: +3 mm pupils are equal, round and reactive to light, extra-ocular movements are intact. No nystagmus. There is normal conjunctiva bilaterally. No signs of icterus. Ears, nose, mouth and throat: There are moist mucous membranes and no oral lesions. Neck: The neck is supple, there is no tenderness or JVD. Cardiovascular: There is a regular rate and rhythm. No murmur, rub or gallop is appreciated. Respiratory: Lungs are clear to auscultation, respirations are non-labored, breath sounds are equal. No wheezes, stridor, rales, or rhonchi. Gastrointestinal: Soft, non-distended, non-tender abdomen without masses or organomegaly noted. There is no rebound or guarding present. Musculoskeletal: Pain to palpation of the right anteriolateral shoulder. Patient refuses to fully range the right shoulder secondary to pain. Patient is no tenderness to palpation of the scapula. Strength 5/5 distal to the right shoulder intact including the elbow and wrist bilaterally patient is able to the okay fingers crossed thumbs-up extent at the wrist b/l. Sensation intact both proximal and distal to injury site. No midline tenderness to palpation of the cervical spine. Radial pulses equal bilaterally 2+. Neurological: A&O x 3. CN II-XII intact, There are no obvious motor or sensory deficits. Coordination appears grossly intact. Speech is normal. Skin: Skin is warm and dry and no rashes or lesions are noted. Psychiatric: Cooperative, appropriate mood & affect, normal judgment. Limitations: no limitations Course Vital Signs 06/02/19 14:39 Temperature 98.4 F Pulse Rate 68 Respiratory 18 Rate Blood Pressure 146/93 O2 Sat by Pulse 96 Oximetry Medical Decision Making - Medical Decision Making 58yo female presented for right shoulder pain atraumatic. No redness no constitutional symptoms. With decreased range motion secondary to pain. Anterior lateral tenderness palpation. Significant calcific tendonitis on XR, the location of tenderness correlates clinically with imaging studies. At this time feel this is the cause of pain. Patient was placed in a splint and given orthopedic surgery follow-up. Patient was given a starter pack for Tylenol No. 3 instructed to take ibuprofen and Tylenol outpatient. Return parameters were discussed at length the patient's discharge appear mildly discussed the case attending provider Dr. Lubin. He did review patient's past medical history as well as imaging studies personally. Disposition Clinical Impression: Right shoulder pain, Tendonitis Disposition: HOME SELF-CARE Condition: Good Instructions (If sedation given, give patient instructions): Calcific Tendinitis (ED) Additional Instructions: Please use medication as discussed. Please follow-up with family doctor in the next 2 days, and orthopedic surgery within the next 1-2 weeks. Please return to emergency room if the symptoms increase or worsen or for any other concerns. Is patient prescribed a controlled substance at d/c from ED?: No Referrals: Daquan Mondragon MD [Primary Care Provider] - 1-2 days Gustavo Hastings PAC [PHYSICIAN INORGANIC CHEMISTRY PROFESSOR] - 1-2 days Time of Disposition: 15:46
== END 2019-06-02 16:00 | disposition home or self-care (01) ==
LOC: EC 14:27
DX: M75.31 Calcific tendinitis of right shoulder (principal); I10 Essential (primary) hypertension; F32.9 Major depressive disorder, single episode, unspecified; Z88.0 Allergy status to penicillin; Z79.899 Other long term (current) drug therapy; Z86.69 Personal history of other diseases of the nervous system and sense organs
CPT/HCPCS: 93005; 99283

== ENCOUNTER → 2019-10-30 | Outpatient (CLI) | payer OTHER ==
[2019-10-30 11:16] LABS: Basophils # (A) 0.1 k/uL (0-0.2); Basophils % (A) 1 %; Eosinophils # (A) 0.3 k/uL (0-0.7); Eosinophils % (A) 5 %; HCT 42.4 % (34.0-46.0); HGB 14.2 gm/dL (11.4-16.0); Lymphocytes % (A) 27 %; MCH 29.9 pg (25.0-35.0); MCHC 33.4 g/dL (31.0-37.0); MCV 89.4 fL (80.0-100.0); Mean Platelet Volume 6.5; Monocytes # (A) 0.4 k/uL (0-1.0); Monocytes % (A) 6 %; Neutrophils # (A) 4.5 k/uL (1.3-7.7); Neutrophils % (A) 60 %; Platelet Count 318 k/uL (150-450); RBC 4.74 m/uL (3.80-5.40); RDW 13.2 % (11.5-15.5); WBC 7.5 k/uL (3.8-10.6)
[2019-10-30 18:09] LABS: African American GFR (CKD) 82.3 (60.0-200.0); Albumin 4.4 g/dL (3.80-4.90); BUN/Creat Ratio 16.67 Ratio (12.00-20.00); Calcium 9.9 mg/dL (8.7-10.3); Chol/HDL Ratio 6.22; Globulin 2.2 g/dL (1.6-3.3); Potassium 4.3 mmol/L (3.5-5.5); T4, Free (Free Thyroxine) 0.8 ng/dL (0.80-1.80); Total Bilirubin 0.6 mg/dL (0.2-1.2); Total Protein 6.6 g/dL (6.2-8.2)
== END | disposition home or self-care (01) ==
LOC: LABWHC1 10:09
PROVIDERS: ATTEND Family Medicine
DX: Z00.00 Encounter for general adult medical examination without abnormal findings (principal); I10 Essential (primary) hypertension; G47.09 Other insomnia; F33.1 Major depressive disorder, recurrent, moderate
CPT/HCPCS: 36415; 80053; 80061; 83721; 84439; 84443; 85025; 86803

== ENCOUNTER → 2023-08-07 | Outpatient (CLI) | payer OTHER ==
--- NOTE | 2023-08-07 07:57 | MM ---
Reason for Exam: Screening (asymptomatic). Last mammogram was performed 13 year(s) and 2 month(s) ago. Patient History: Menarche at age 18. First Full-Term at age 21. Postmenopausal. Risk Values: Liz 5 year model risk: 1.0%. NCI Lifetime model risk: 4.7%. Prior Study Comparison: 11/30/2007 Bilateral Screening Mammogram, [facility]. 01/23/2009 Bilateral Screening Mammogram, [facility]. 02/02/2009 Left Diagnostic Mammogram, [facility]. 06/23/2010 Bilateral Screening Mammogram, [facility]. Tissue Density: There are scattered fibroglandular densities. Findings: Analyzed By CAD. There is no suspicious group of microcalcifications or new suspicious mass in either breast. Overall Assessment: Negative, BI-RAD 1 Management: Screening Mammogram of both breasts in 1 year. . Patient should continue monthly self-breast exams. A clinical breast exam by your physician is recommended on an annual basis. This exam should not preclude additional follow-up of suspicious palpable abnormalities. Note on Liz scores and lifetime risk: 1. A Liz score greater than 3% is considered moderate risk. If this is the case, consider specialist referral to assess eligibility for a risk reducing agent. 2. If overall lifetime risk for the development of breast cancer is 20% or higher, the patient may qualify for future screening with alternating mammogram and breast MRI. Electronically signed and approved by: Darshan Tsang M.D. Radiologis
== END | disposition home or self-care (01) ==
LOC: RADMAMWWP 06:56
PROVIDERS: ATTEND Family Medicine
DX: Z12.31 Encounter for screening mammogram for malignant neoplasm of breast (principal); Z78.0 Asymptomatic menopausal state
CPT/HCPCS: 77067

== ENCOUNTER → 2023-11-09 | Outpatient (CLI) | payer OTHER ==
--- NOTE | 2023-11-09 08:35 | US ---
EXAMINATION TYPE: US abdomen complete DATE OF EXAM: 11/09/2023 COMPARISON: NONE CLINICAL INDICATION: Female, 63 years old with history of R10.9 Flank pain R31.9 UNSPECIFIED ABDOMINA L PAIN; lt flank pain x 2 months, episode of gross hematuria TECHNIQUE: Multiple sonographic images of the abdomen are obtained. FINDINGS: EXAM MEASUREMENTS: Liver Length: 15.0 cm Gallbladder Wall: 0.2 cm CBD: 0.4 cm Spleen: 8.7 cm Right Kidney: 9.6x3.9x4.3 cm Left Kidney: 9.3x4.5x4.7 cm GLUE SPRAYER NOTES: Pancreas: Tail obscured by overlying bowel gas Liver: upper limits, increased echogenicity, limited evaluation due to bowel gas and body habitus Gallbladder: wnl Evidence for sonographic Alegria's sign: No CBD: wnl Spleen: wnl, limited evaluation due to bowel gas and body habitus Right Kidney: 1.0x0.8x0.9cm anechoic area noted mid kidney Left Kidney: small 0.2cm shadowing echogenic focus Upper IVC: wnl Abd Aorta: wnl exam slightly limited due to bowel gas and body habitus The liver is homogenous. The intrahepatic portion of the IVC and proximal abdominal aorta are within normal limits. There is no evidence of cholelithiasis. Common bile duct is unremarkable. The visu alized portions of the pancreas are homogenous. The spleen is unremarkable. Kidneys are symmetric a nd free of hydronephrosis. IMPRESSION: 1. Mild hepatic steatosis. 2. Renal cyst.
--- NOTE | 2023-11-09 08:37 | US ---
EXAMINATION TYPE: US pelvic complete DATE OF EXAM: 11/09/2023 COMPARISON: NONE CLINICAL INDICATION: Female, 63 years old with history of R10.9 Flank pain R31.9 UNSPECIFIED ABDOMINA L PAIN; LT flank pain x 2 months, one episode of gross hematuria TECHNIQUE: Transabdominal (TA). Transabdominal sonographic images of the pelvis were acquired. Date of LMP: 10 yrs ago EXAM MEASUREMENTS: Uterus: 7.6x2.3x3.7 cm Endometrial Stripe: 0.3 cm Right Ovary: 1.2x1.5x1.2 cm Left Ovary: 1.9x1.5x0.9 cm 1. Uterus: Anteverted wnl 2. Endometrium: fluid noted at fundal portion of endometrium 3. Right Ovary: wnl 4. Left Ovary: wnl 5. Bilateral Adnexa: Obscured by overlying bowel gas 6. Posterior cul-de-sac: wnl IMPRESSION: No discrete abnormality seen.
== END | disposition home or self-care (01) ==
LOC: RADUSWWP 07:20
PROVIDERS: ATTEND Family Medicine
DX: K76.0 Fatty (change of) liver, not elsewhere classified (principal); N28.1 Cyst of kidney, acquired; R31.9 Hematuria, unspecified
CPT/HCPCS: 76700; 76856

== ENCOUNTER 2025-03-04 09:38 | Day surgery (SDC) | payer BC, OTHER ==
[2025-03-04] MEDS ORDERED: LACTATED RINGERS 1,000 ML IV SCH (09:52)
[2025-03-04] MEDS: IV FLUID CONTINUATION 1,000 ML IV ONE (09:54)
[2025-03-04 10:08] VITALS: RESP 16; TEMP 99.2
[2025-03-04] MEDS: ONDANSETRON 4 MG/2 ML VIAL IVP STA (10:20)
[2025-03-04] MEDS ORDERED: PROPOFOL 10 MG/ML 20 ML VIAL IV ONE (10:34)
[2025-03-04] MEDS ORDERED: MIDAZOLAM 2 MG/2 ML VIAL ONE (10:34)
[2025-03-04] MEDS ORDERED: LIDOCAINE 1% INJ 10MG/ML (20 ML MDV) ONE (10:34)
[2025-03-04 11:26] VITALS: BP 123/78; PULSE 73
--- NOTE | 2025-03-04 12:12 | PCN ---
PROCEDURE NOTE REQUESTING PHYSICIAN: Dr. Js Rabago. BRIEF HISTORY: The patient is a 64-year-old pleasant white female scheduled for a colonoscopy as a part of screening for colorectal neoplasia/positive Cologuard. PROCEDURE PERFORMED: Colonoscopy. PREOPERATIVE DIAGNOSIS: Screening for colon cancer/positive Cologuard. ANESTHESIA: IV sedation per Anesthesia. DESCRIPTION OF PROCEDURE: After informed consent was obtained from the patient, she was brought into the endoscopy unit. IV conscious sedation was administered by Anesthesia and continuous monitoring. Initial digital rectal examination was normal. The Olympus CF-180 video colonoscope was then inserted into the rectum, gradually advanced into the cecum. Careful examination was performed. Prep was excellent. Mucosa of the cecum, ascending colon, transverse colon, descending colon appeared normal. In the sigmoid colon, few diverticulosis seen. The rectum appeared normal. Retroflexion was performed in the rectum. Small internal hemorrhoids were noted. The patient tolerated the procedure well. IMPRESSION: 1. Scattered sigmoid diverticulosis. 2. Small internal hemorrhoids. RECOMMENDATIONS: Findings of this examination were discussed with the patient as well as the family. She was advised to be on a high-fiber diet, take fiber supplements on a regular basis and have a repeat colonoscopy in 10 years. MMODL / IJN: [id number] /
== END 2025-03-04 11:36 | disposition home or self-care (01) ==
LOC: ORWHC2ENDO 09:38
PROVIDERS: ATTEND Internal Medicine Gastroenterology
DX: Z12.11 Encounter for screening for malignant neoplasm of colon (principal); K57.30 Diverticulosis of large intestine without perforation or abscess without bleeding; K64.8 Other hemorrhoids
CPT/HCPCS: 45378; J2250; J2405; J2003; J2704